=== PATIENT | male | born 1965 | race Caucasian/White ===

== ENCOUNTER 2020-07-17 17:08 | Inpatient (IN) | payer OTHER ==
[2020-07-17] MEDS ORDERED: Lorazepam 2 MG/ML VIAL ONE ×2 (18:27→19:54)
[2020-07-17] MEDS ORDERED: Lorazepam 2 MG/ML VIAL SLOW IVP SCH (18:30)
[2020-07-17] MEDS ORDERED: Zolpidem Tartrate 5 MG TAB PO PRN (18:34)
[2020-07-17] MEDS ORDERED: Ondansetron PF 4 MG/2 ML Vial IVP PRN (18:34)
[2020-07-17] MEDS ORDERED: Enoxaparin Sodium 40 MG/0.4 ML SYRINGE SC SCH (18:45)
[2020-07-17] MEDS ORDERED: Lorazepam 2 MG/ML VIAL SLOW IVP PRN ×2 (18:47→19:52)
[2020-07-17] MEDS ORDERED: niCARdipine 25 MG in Sodium Chloride 0.9% 250 ML 250 ML IVPB SCH (19:00)
[2020-07-17] MEDS: hydrALAZINE 20 MG/ML VIAL SLOW IVP PRN (19:04)
[2020-07-17] MEDS ORDERED: Dextrose 50% Abboject 50 ML SYRINGE SLOW IVP PRN (19:16)
[2020-07-17] MEDS ORDERED: Dextrose 5% in Water 1,000 ML IV PRN (19:16)
[2020-07-17] MEDS: niCARdipine 20MG In NaCl 20 MG/200 ML BAG IVPB SCH ×2 (20:00→22:00)
[2020-07-17] MEDS: Lorazepam 2 MG/ML VIAL SLOW IVP SCH ×2 (20:10→23:03)
[2020-07-17] MEDS: Lactated Ringer's 1,000 ML IV SCH (20:22)
[2020-07-17 20:28] LABS: Bilirubin Neg (Negative); Blood, Urine Negative (Negative); Clarity Clear (Clear); Glucose, Urine (Dipstick) >=1000 mg/dL (Negative); Ketone, Urine 50 mg/dL (Negative); Leukocyte Negative (Negative); Nitrite Negative (Negative); Protein, Urine (Dipstick) 30 mg/dl (Neg-Trace); Urobilinogen Normal mg/dL (Less than 2); pH, Urine 6.5 (5.0-9.0)
[2020-07-17 20:36] LABS: Amphetamine Not Detected (NotDetected); Barbiturates Screen Not Detected (NotDetected); Benzodiazepine Screen Not Detected (NotDetected); Cocaine Metabolite Screen Not Detected (NotDetected); Methadone Not Detected (NotDetected); Methamphetamine Not Detected (NotDetected); Opiate Screen Detected (NotDetected); Oxycodone Screen Not Detected (NotDetected); Phencyclidine (PCP) Not Detected (NotDetected); THC/Cannabinoid Screen Detected (NotDetected); Tricyclic Screen Not Detected (NotDetected)
[2020-07-17 20:38] LABS: #Basophils 0.1 10x3/uL (0.0-0.2); #Monocytes 0.5 10x3/uL (0.0-1.1); #Neutrophils 11.7 10x3/uL (1.5-8.4); %Basophils 0.4 % (0.0-2.0); %Eosinophils 0.1 % (0.0-6.0); %Monocytes 3.4 % (0.0-10.0); %Neutrophils 86.4 % (40.0-75.0); Hemoglobin 15.1 g/dL (13.5-17.5); Mean Corpuscular HGB CONC 34.2 g/dL (32.0-36.0); Mean Corpuscular Hemoglobin 28.9 pg (27.0-33.0); Mean Corpuscular Volume 84.5 fl (81.2-95.1); Mean Platelet Volume 11.2 fl (7.4-10.4); Platelet Count 275 10x3/uL (150-450); RBC Distribution Width 13.3 % (11.5-14.5); Red Blood Cell (RBC) Count 5.23 10x6/uL (4.32-5.72); White Blood Cell (WBC) Count 13.6 10x3/uL (3.5-10.5)
[2020-07-17 20:45] LABS: Bacteria/HPF None Seen HPF (None Seen); RBC/HPF None Seen HPF (0-3); Squamous Epithelial 0-3 HPF (0-3); WBC/HPF None Seen HPF (0-3)
[2020-07-17 20:54] LABS: ALT (SGPT) 13 U/L (8-55); AST (SGOT) 13 U/L (5-34); Albumin 4.6 g/dL (3.5-5.0); Alkaline Phosphatase 85 U/L (40-110); Anion Gap 20 mmol/L (10-20); BUN (Urea Nitrogen) 13 mg/dL (8.4-25.7); Bilirubin, Total 0.5 mg/dL (0.2-1.2); Calc. Creatinine Clearance 97 mL/min (70-130); Calcium 9.4 mg/dL (7.8-10.44); Carbon Dioxide 21 mmol/L (22-29); Chloride 102 mmol/L (98-107); Globulin 3.2 g/dL (2.4-3.5); Glucose 239 mg/dL (70-105); Lipase 10 U/L (8-78); Potassium 3.7 mmol/L (3.5-5.1); Protein, Total 7.8 g/dL (6.0-8.3); Sodium 139 mmol/L (136-145)
[2020-07-17 20:57] LABS: Troponin I 0.058 ng/mL (< 0.028)
[2020-07-17 21:07] LABS: Glucose 240 mg/dL (70-105)
[2020-07-17] MEDS: HumaLOG 300 UNITS/3 ML VIAL SC PRN (21:07)
[2020-07-17] MEDS: Famotidine/PF 20 mg/2ml Vial SLOW IVP SCH (22:09)
[2020-07-17] MEDS ORDERED: Sterile Water 10 ML VIAL FS SCH (22:15)
[2020-07-17] MEDS ORDERED: Ziprasidone 20 MG VIAL IM SCH (22:15)
[2020-07-17] MEDS ORDERED: niCARdipine 20MG In NaCl 20 MG/200 ML BAG ONE (23:06)
[2020-07-17] MEDS ORDERED: Labetalol HCl 200 MG in Sodium Chloride 0.9% 250 ML 160 ML IVPB SCH (23:59)
[2020-07-18] MEDS: cloNIDine 0.1mg/24 Hour PATCH TD SCH ×2 (00:26→23:59)
[2020-07-18] MEDS: SODIUM CHLORIDE 0.9% IVPB SCH ×2 (00:27→10:00)
[2020-07-18] MEDS: LABETALOL HCL IVPB SCH ×2 (00:27→10:00)
[2020-07-18 00:29] LABS: Troponin I 0.071 ng/mL (< 0.028)
[2020-07-18] MEDS: Lorazepam 2 MG/ML VIAL SLOW IVP PRN ×3 (01:04→16:26)
[2020-07-18] MEDS: Lactated Ringer's 1,000 ML IV SCH ×3 (03:43→20:59)
[2020-07-18] MEDS: Lorazepam 2 MG/ML VIAL SLOW IVP SCH ×8 (03:43→23:57)
[2020-07-18 04:39] LABS: #Neutrophils 11.3 10x3/uL (1.5-8.4); %Basophils 0.3 % (0.0-2.0); %Lymphocytes 13.1 % (18.0-47.0); %Monocytes 7.1 % (0.0-10.0); %Neutrophils 79.2 % (40.0-75.0); Hemoglobin 15.1 g/dL (13.5-17.5); Mean Corpuscular HGB CONC 33.9 g/dL (32.0-36.0); Mean Corpuscular Volume 85.8 fl (81.2-95.1); Mean Platelet Volume 11.5 fl (7.4-10.4); Platelet Count 246 10x3/uL (150-450); RBC Distribution Width 13.2 % (11.5-14.5); White Blood Cell (WBC) Count 14.3 10x3/uL (3.5-10.5)
[2020-07-18 04:52] LABS: ALT (SGPT) 14 U/L (8-55); AST (SGOT) 16 U/L (5-34); Albumin 4.3 g/dL (3.5-5.0); Alkaline Phosphatase 81 U/L (40-110); Anion Gap 18 mmol/L (10-20); BUN (Urea Nitrogen) 12 mg/dL (8.4-25.7); Bilirubin, Total 0.5 mg/dL (0.2-1.2); Calc. Creatinine Clearance 124 mL/min (70-130); Calcium 9.4 mg/dL (7.8-10.44); Carbon Dioxide 23 mmol/L (22-29); Chloride 105 mmol/L (98-107); Globulin 3.1 g/dL (2.4-3.5); Glucose 161 mg/dL (70-105); Lipase 14 U/L (8-78); Potassium 3.4 mmol/L (3.5-5.1); Protein, Total 7.4 g/dL (6.0-8.3); Sodium 143 mmol/L (136-145)
[2020-07-18 05:05] LABS: Troponin I 0.207 ng/mL (< 0.028)
[2020-07-18] MEDS: HumaLOG 300 UNITS/3 ML VIAL SC PRN ×3 (08:37→22:47)
[2020-07-18] MEDS: Famotidine/PF 20 mg/2ml Vial SLOW IVP SCH ×2 (08:42→20:37)
[2020-07-18] MEDS: Lisinopril 20 MG TAB PO SCH (08:54)
[2020-07-18] MEDS ORDERED: hydrALAZINE 25 MG TAB PO SCH ×2 (11:15→15:00)
[2020-07-18 11:22] LABS: Hemoglobin A1c 11.7 % (4.0-6.0)
[2020-07-18] MEDS ORDERED: Potassium Chloride 10 MEQ in Premix Bag 1 BAG IVPB SCH (11:30)
[2020-07-18] MEDS: hydrALAZINE 20 MG/ML VIAL SLOW IVP PRN ×2 (13:00→21:29)
[2020-07-18] MEDS: Carvedilol 12.5 MG TAB PO SCH (16:26)
[2020-07-19] MEDS: Labetalol HCl 100 MG/20 ML VIAL SLOW IVP PRN ×2 (00:34→11:10)
[2020-07-19] MEDS: hydrALAZINE 20 MG/ML VIAL SLOW IVP PRN (01:38)
[2020-07-19] MEDS: Lorazepam 2 MG/ML VIAL SLOW IVP SCH ×7 (02:44→22:06)
[2020-07-19 04:34] LABS: ALT (SGPT) 15 U/L (8-55); AST (SGOT) 18 U/L (5-34); Alkaline Phosphatase 88 U/L (40-110); Anion Gap 15 mmol/L (10-20); BUN (Urea Nitrogen) 18 mg/dL (8.4-25.7); Bilirubin, Total 0.8 mg/dL (0.2-1.2); Calc. Creatinine Clearance 126 mL/min (70-130); Calcium 9.5 mg/dL (7.8-10.44); Carbon Dioxide 22 mmol/L (22-29); Chloride 109 mmol/L (98-107); Globulin 2.7 g/dL (2.4-3.5); Glucose 140 mg/dL (70-105); Potassium 3.6 mmol/L (3.5-5.1); Protein, Total 6.7 g/dL (6.0-8.3); Sodium 142 mmol/L (136-145)
[2020-07-19 04:40] LABS: #Basophils 0.1 10x3/uL (0.0-0.2); #Monocytes 1.1 10x3/uL (0.0-1.1); #Neutrophils 12.8 10x3/uL (1.5-8.4); %Basophils 0.4 % (0.0-2.0); %Eosinophils 0.1 % (0.0-6.0); %Lymphocytes 11.4 % (18.0-47.0); %Neutrophils 80.7 % (40.0-75.0); Hemoglobin 15.1 g/dL (13.5-17.5); Mean Corpuscular HGB CONC 33.3 g/dL (32.0-36.0); Mean Corpuscular Volume 87.1 fl (81.2-95.1); Mean Platelet Volume 12.1 fl (7.4-10.4); Platelet Count 234 10x3/uL (150-450); RBC Distribution Width 13.6 % (11.5-14.5); White Blood Cell (WBC) Count 15.9 10x3/uL (3.5-10.5)
[2020-07-19 04:44] LABS: Troponin I 0.305 ng/mL (< 0.028)
[2020-07-19] MEDS: Lactated Ringer's 1,000 ML IV SCH (04:45)
[2020-07-19] MEDS ORDERED: Nitroglycerin 2% Ointment 1 INCH/1 GM Packet TOP SCH (05:15)
[2020-07-19] MEDS: HumaLOG 300 UNITS/3 ML VIAL SC PRN (06:45)
[2020-07-19] MEDS: Carvedilol 12.5 MG TAB PO SCH (08:08)
[2020-07-19 08:35] LABS: Glucose 156 mg/dL (70-105)
[2020-07-19] MEDS: hydrALAZINE 25 MG TAB PO SCH ×3 (08:35→22:08)
[2020-07-19] MEDS: Aspirin 81 mg Enteric Coated Tablet PO SCH (08:36)
[2020-07-19] MEDS: Vancomycin HCl 1 GM in Sodium Chloride 0.9% 250 ML 250 ML IVPB SCH ×2 (08:37→22:08)
[2020-07-19] MEDS: Famotidine/PF 20 mg/2ml Vial SLOW IVP SCH ×2 (08:37→22:00)
[2020-07-19] MEDS: Lisinopril 20 MG TAB PO SCH (08:38)
[2020-07-19] MEDS ORDERED: Carvedilol 25 MG TAB PO SCH (08:45)
[2020-07-19] MEDS ORDERED: Vancomycin 1 GM in Premix Bag 1 BAG IVPB SCH (09:00)
[2020-07-19] MEDS ORDERED: Furosemide 20 MG/2 ML VIAL SLOW IVP SCH (11:00)
[2020-07-19 11:50] LABS: Glucose 119 mg/dL (70-105)
[2020-07-19] MEDS: Lorazepam 2 MG/ML VIAL SLOW IVP PRN (12:34)
[2020-07-19] MEDS: Carvedilol 25 MG TAB PO SCH (17:00)
[2020-07-19] MEDS ORDERED: Atropine Sulfate 1 mg/10 ml Syringe ONE (18:05)
[2020-07-19] MEDS ORDERED: Norepinephrine 8 MG/0.9% NS 250 ML ONE (18:22)
[2020-07-19] MEDS ORDERED: Atropine Sulfate 1 mg/10 ml Syringe IVP SCH (18:45)
[2020-07-19] MEDS ORDERED: Norepinephrine 8 MG/0.9% NS 250 ML IVPB SCH (18:45)
[2020-07-19] MEDS ORDERED: Propofol 1,000 MG/100 ML VIAL IV ONE (20:03)
[2020-07-19] MEDS ORDERED: Propofol BOLUS 1,000 MG/100 ML VIAL IV PRN (21:15)
[2020-07-19] MEDS ORDERED: Lorazepam 2 MG/ML VIAL SLOW IVP PRN (21:15)
[2020-07-19] MEDS ORDERED: DISCONTINUE PREVIOUS NARCOTIC PAIN MEDICATIONS AND BENZODIAZEPINES FS SCH (21:15)
[2020-07-19] MEDS ORDERED: Fentanyl BOLUS 250 ML IVPB PRN (21:15)
[2020-07-19] MEDS ORDERED: Morphine 2 MG/ML VIAL SLOW IVP PRN (21:15)
[2020-07-19] MEDS: Atorvastatin Calcium 40 MG TAB PO SCH (22:00)
[2020-07-20] MEDS: Lorazepam 2 MG/ML VIAL SLOW IVP SCH ×3 (00:52→07:59)
[2020-07-20] MEDS: Propofol 1,000 MG/100 ML VIAL IV PRN ×2 (03:27→07:37)
[2020-07-20] MEDS: Labetalol HCl 100 MG/20 ML VIAL SLOW IVP PRN (05:08)
[2020-07-20] MEDS: Aspirin 81 mg Enteric Coated Tablet PO SCH (07:58)
[2020-07-20] MEDS: Carvedilol 25 MG TAB PO SCH ×2 (07:58→16:50)
[2020-07-20] MEDS: Lisinopril 20 MG TAB PO SCH (07:58)
[2020-07-20] MEDS: Famotidine/PF 20 mg/2ml Vial SLOW IVP SCH ×2 (07:58→21:14)
[2020-07-20] MEDS: hydrALAZINE 25 MG TAB PO SCH ×3 (07:59→21:05)
[2020-07-20 08:02] LABS: #Monocytes 0.4 10x3/uL (0.0-1.1); #Neutrophils 4.6 10x3/uL (1.5-8.4); %Basophils 0.3 % (0.0-2.0); %Monocytes 6.1 % (0.0-10.0); %Neutrophils 80.3 % (40.0-75.0); Hemoglobin 13.7 g/dL (13.5-17.5); Mean Corpuscular HGB CONC 32.9 g/dL (32.0-36.0); Mean Corpuscular Volume 87.9 fl (81.2-95.1); Mean Platelet Volume 12.6 fl (7.4-10.4); Platelet Count 150 10x3/uL (150-450); Red Blood Cell (RBC) Count 4.73 10x6/uL (4.32-5.72); White Blood Cell (WBC) Count 5.8 10x3/uL (3.5-10.5)
[2020-07-20 08:38] LABS: ALT (SGPT) 17 U/L (8-55); AST (SGOT) 14 U/L (5-34); Albumin 3.2 g/dL (3.5-5.0); Alkaline Phosphatase 71 U/L (40-110); Anion Gap 21 mmol/L (10-20); BUN (Urea Nitrogen) 28 mg/dL (8.4-25.7); Bilirubin, Total 0.4 mg/dL (0.2-1.2); Calc. Creatinine Clearance 121 mL/min (70-130); Calcium 9.1 mg/dL (7.8-10.44); Carbon Dioxide 13 mmol/L (22-29); Chloride 113 mmol/L (98-107); Globulin 2.6 g/dL (2.4-3.5); Glucose 158 mg/dL (70-105); Magnesium 2.1 mg/dL (1.6-2.6); Potassium 3.4 mmol/L (3.5-5.1); Protein, Total 5.8 g/dL (6.0-8.3); Sodium 144 mmol/L (136-145)
[2020-07-20] MEDS: Vancomycin HCl 1 GM in Sodium Chloride 0.9% 250 ML 250 ML IVPB SCH ×2 (09:24→21:14)
[2020-07-20 09:31] LABS: Free T4 (Free Thyroxine) 0.89 ng/dL (0.70-1.48); Thyroid Stimulating Hormone 0.3001 uIU/mL (0.35-4.94)
[2020-07-20] MEDS: Dexmedetomidine In 0.9 % NaCl 100 ML IVPB SCH (11:47)
[2020-07-20 12:33] LABS: Glucose 131 mg/dL (70-105)
[2020-07-20 12:39] LABS: Actual Bicarbonate (HCO3a) 20.6 mEq/L (22-28); Base Excess (BEa) -1.3 mEq/L (-2.0 to +3.0); CO2 Tension 27.5 mmHg (35.0-45.0); Calcium, Ionized (arterial) 1.17 mmol/L (1.12-1.30); Carboxyhemoglobin (COHb) 0.4 gm% (0.0-3.0); Hemoglobin (Hb) 13.9 g/dL (14.0-18.0); O2 Tension (PaO2), arterial 90.1 mmHg (80.0-100.0); Potassium - ABG Lab 3.4 mmol/L (3.70-5.30); Puncture Site RRA; pH, Arterial 7.49 (7.35-7.45)
[2020-07-20 12:43] LABS: ALV-art Gradient 160.725 mmHg (0-20)
[2020-07-20] MEDS ORDERED: Sodium Bicarb 50 MEQ/50 ML Abboject 8.4% SYRINGE IVP SCH (14:15)
[2020-07-20] MEDS ORDERED: Sodium Bicarb 50 MEQ/50 ML VIAL IVP SCH (14:30)
[2020-07-20] MEDS ORDERED: Potassium Chloride 20 MEQ in Premix Bag 1 BAG IVPB SCH (14:45)
[2020-07-20] MEDS ORDERED: Fentanyl CADD 100 ML ONE (15:18)
[2020-07-20] MEDS: Fentanyl CADD 100 ML IVPB SCH (15:22)
[2020-07-20 17:35] LABS: Glucose 108 mg/dL (70-105)
[2020-07-20 20:43] LABS: Vancomycin, Trough 14.9 ug/mL
[2020-07-20] MEDS: Atorvastatin Calcium 40 MG TAB PO SCH (21:13)
[2020-07-20 21:49] LABS: Glucose 125 mg/dL (70-105)
[2020-07-21 04:22] LABS: #Monocytes 0.6 10x3/uL (0.0-1.1); #Neutrophils 7.9 10x3/uL (1.5-8.4); %Basophils 0.2 % (0.0-2.0); %Eosinophils 0.2 % (0.0-6.0); %Monocytes 5.5 % (0.0-10.0); %Neutrophils 76.4 % (40.0-75.0); Hemoglobin 12.4 g/dL (13.5-17.5); Mean Corpuscular HGB CONC 32.9 g/dL (32.0-36.0); Mean Corpuscular Volume 88.1 fl (81.2-95.1); Mean Platelet Volume 12.8 fl (7.4-10.4); Platelet Count 173 10x3/uL (150-450); RBC Distribution Width 14.7 % (11.5-14.5); Red Blood Cell (RBC) Count 4.28 10x6/uL (4.32-5.72); White Blood Cell (WBC) Count 10.3 10x3/uL (3.5-10.5)
[2020-07-21 04:38] LABS: Anion Gap 15 mmol/L (10-20); BUN (Urea Nitrogen) 34 mg/dL (8.4-25.7); Calc. Creatinine Clearance 83 mL/min (70-130); Calcium 8.6 mg/dL (7.8-10.44); Carbon Dioxide 20 mmol/L (22-29); Chloride 113 mmol/L (98-107); Glucose 153 mg/dL (70-105); Potassium 3.2 mmol/L (3.5-5.1); Sodium 145 mmol/L (136-145)
[2020-07-21] MEDS: Dexmedetomidine In 0.9 % NaCl 100 ML IVPB SCH ×2 (07:38→17:21)
[2020-07-21] MEDS: Famotidine/PF 20 mg/2ml Vial SLOW IVP SCH ×2 (07:59→21:33)
[2020-07-21] MEDS: Aspirin 81 mg Enteric Coated Tablet PO SCH (07:59)
[2020-07-21] MEDS: hydrALAZINE 25 MG TAB PO SCH ×3 (08:01→21:33)
[2020-07-21 08:22] LABS: Glucose 144 mg/dL (70-105)
[2020-07-21] MEDS: Vancomycin HCl 1 GM in Sodium Chloride 0.9% 250 ML 250 ML IVPB SCH ×2 (09:52→21:33)
[2020-07-21] MEDS: Lisinopril 20 MG TAB PO SCH (09:52)
[2020-07-21] MEDS: Carvedilol 25 MG TAB PO SCH ×2 (09:52→16:20)
[2020-07-21] MEDS: Fentanyl CADD 100 ML IVPB SCH (10:50)
[2020-07-21 11:58] LABS: Glucose 160 mg/dL (70-105)
[2020-07-21] MEDS: HumaLOG 300 UNITS/3 ML VIAL SC PRN (16:52)
[2020-07-21 17:57] LABS: Glucose 170 mg/dL (70-105)
[2020-07-21] MEDS: Atorvastatin Calcium 40 MG TAB PO SCH (21:33)
[2020-07-21 21:43] LABS: Glucose 147 mg/dL (70-105)
[2020-07-22] MEDS ORDERED: Midazolam HCl 2 mg/2 ml Vial SLOW IVP PRN (03:41)
[2020-07-22] MEDS ORDERED: Midazolam HCl 2 mg/2 ml Vial SLOW IVP SCH (03:45)
[2020-07-22] MEDS: Dexmedetomidine In 0.9 % NaCl 100 ML IVPB SCH ×2 (04:00→18:09)
[2020-07-22] MEDS: Fentanyl CADD 100 ML IVPB SCH (05:25)
[2020-07-22] MEDS: Carvedilol 25 MG TAB PO SCH ×2 (08:05→16:17)
[2020-07-22] MEDS: hydrALAZINE 25 MG TAB PO SCH ×3 (08:05→21:09)
[2020-07-22] MEDS: Lisinopril 20 MG TAB PO SCH (08:05)
[2020-07-22 08:06] LABS: Vancomycin, Trough 17.3 ug/mL
[2020-07-22] MEDS: Famotidine/PF 20 mg/2ml Vial SLOW IVP SCH ×2 (08:07→21:09)
[2020-07-22 08:11] LABS: Glucose 157 mg/dL (70-105)
[2020-07-22] MEDS: Vancomycin HCl 1 GM in Sodium Chloride 0.9% 250 ML 250 ML IVPB SCH ×2 (09:15→21:36)
[2020-07-22] MEDS: Labetalol HCl 100 MG/20 ML VIAL SLOW IVP PRN (13:07)
[2020-07-22] MEDS: hydrALAZINE 20 MG/ML VIAL SLOW IVP PRN (14:47)
[2020-07-22] MEDS: Atorvastatin Calcium 40 MG TAB PO SCH (21:08)
[2020-07-22] MEDS: Acetaminophen 325 MG TAB PO PRN (21:10)
[2020-07-23] MEDS: Labetalol HCl 100 MG/20 ML VIAL SLOW IVP PRN ×3 (00:15→22:01)
[2020-07-23] MEDS: hydrALAZINE 20 MG/ML VIAL SLOW IVP PRN ×2 (02:30→23:40)
[2020-07-23] MEDS ORDERED: NIFEdipine XL 60 MG TAB PO SCH (03:30)
[2020-07-23] MEDS ORDERED: NIFEdipine 10 MG CAP PO SCH ×2 (04:15→21:00)
[2020-07-23] MEDS: Aspirin 81 mg Enteric Coated Tablet PO SCH (08:45)
[2020-07-23] MEDS: Lisinopril 20 MG TAB PO SCH (08:45)
[2020-07-23] MEDS: hydrALAZINE 25 MG TAB PO SCH ×5 (08:51→20:48)
[2020-07-23] MEDS: Famotidine/PF 20 mg/2ml Vial SLOW IVP SCH ×2 (08:53→20:48)
[2020-07-23] MEDS: Vancomycin HCl 1 GM in Sodium Chloride 0.9% 250 ML 250 ML IVPB SCH (08:54)
[2020-07-23] MEDS: Carvedilol 25 MG TAB PO SCH ×2 (08:54→16:46)
[2020-07-23] MEDS ORDERED: hydrALAZINE 25 MG TAB PO SCH (09:00)
[2020-07-23] MEDS: HumaLOG 300 UNITS/3 ML VIAL SC PRN ×2 (09:01→12:00)
[2020-07-23 10:25] LABS: Actual Bicarbonate (HCO3a) 23.2 mEq/L (22-28); Base Excess (BEa) -0.9 mEq/L (-2.0 to +3.0); CO2 Tension 36.6 mmHg (35.0-45.0); Carboxyhemoglobin (COHb) 0.4 gm% (0.0-3.0); Hemoglobin (Hb) 13.3 g/dL (14.0-18.0); O2 Tension (PaO2), arterial 84.3 mmHg (80.0-100.0); Potassium - ABG Lab 3.5 mmol/L (3.70-5.30); Puncture Site LRA; pH, Arterial 7.42 (7.35-7.45)
[2020-07-23 10:56] LABS: ALV-art Gradient 240.525 mmHg (0-20); Actual Bicarbonate (HCO3a) 20.4 mEq/L (22-28); Base Excess (BEa) -5.7 mEq/L (-2.0 to +3.0); CO2 Tension 42.7 mmHg (35.0-45.0); Calcium, Ionized (arterial) 1.19 mmol/L (1.12-1.30); Carboxyhemoglobin (COHb) 0.3 gm% (0.0-3.0); Hemoglobin (Hb) 12.3 g/dL (14.0-18.0); O2 Tension (PaO2), arterial 419.1 mmHg (80.0-100.0); Potassium - ABG Lab 3.5 mmol/L (3.70-5.30); Puncture Site LRA
[2020-07-23] MEDS ORDERED: Dexmedetomidine In 0.9 % NaCl 100 ML ONE (14:10)
[2020-07-23] MEDS: Atorvastatin Calcium 40 MG TAB PO SCH (20:48)
[2020-07-23] MEDS: Amlodipine 10 MG TAB PO SCH (20:49)
[2020-07-23] MEDS: Dexmedetomidine In 0.9 % NaCl 100 ML IVPB SCH (23:04)
[2020-07-24] MEDS: Labetalol HCl 100 MG/20 ML VIAL SLOW IVP PRN ×4 (02:44→20:54)
[2020-07-24 04:31] LABS: #Basophils 0.1 10x3/uL (0.0-0.2); #Monocytes 0.7 10x3/uL (0.0-1.1); #Neutrophils 7.3 10x3/uL (1.5-8.4); %Basophils 0.6 % (0.0-2.0); %Eosinophils 0.2 % (0.0-6.0); %Lymphocytes 12.9 % (18.0-47.0); %Monocytes 7.4 % (0.0-10.0); %Neutrophils 74.8 % (40.0-75.0); Hemoglobin 14.7 g/dL (13.5-17.5); Mean Corpuscular HGB CONC 33.5 g/dL (32.0-36.0); Mean Corpuscular Hemoglobin 28.6 pg (27.0-33.0); Mean Corpuscular Volume 85.4 fl (81.2-95.1); Mean Platelet Volume 11.8 fl (7.4-10.4); Platelet Count 217 10x3/uL (150-450); RBC Distribution Width 14.2 % (11.5-14.5); Red Blood Cell (RBC) Count 5.14 10x6/uL (4.32-5.72); White Blood Cell (WBC) Count 9.7 10x3/uL (3.5-10.5)
[2020-07-24 04:50] LABS: Anion Gap 22 mmol/L (10-20); BUN (Urea Nitrogen) 23 mg/dL (8.4-25.7); Calc. Creatinine Clearance 127 mL/min (70-130); Calcium 9.3 mg/dL (7.8-10.44); Carbon Dioxide 13 mmol/L (22-29); Chloride 112 mmol/L (98-107); Glucose 183 mg/dL (70-105); Potassium 3.8 mmol/L (3.5-5.1); Sodium 143 mmol/L (136-145)
[2020-07-24] MEDS: hydrALAZINE 20 MG/ML VIAL SLOW IVP PRN (06:03)
[2020-07-24] MEDS: HumaLOG 300 UNITS/3 ML VIAL SC PRN ×4 (06:32→21:53)
[2020-07-24 08:12] LABS: Glucose 171 mg/dL (70-105)
[2020-07-24] MEDS ORDERED: NIFEdipine XL 60 MG TAB PO SCH (09:00)
[2020-07-24] MEDS: Carvedilol 25 MG TAB PO SCH ×2 (09:03→16:03)
[2020-07-24] MEDS: hydrALAZINE 25 MG TAB PO SCH ×3 (09:04→21:41)
[2020-07-24] MEDS: Famotidine/PF 20 mg/2ml Vial SLOW IVP SCH ×2 (09:04→21:42)
[2020-07-24] MEDS: Aspirin 81 mg Enteric Coated Tablet PO SCH (09:04)
[2020-07-24] MEDS: Lisinopril 20 MG TAB PO SCH (09:05)
[2020-07-24] MEDS: Dexmedetomidine In 0.9 % NaCl 100 ML IVPB SCH (11:55)
[2020-07-24] MEDS: Isosorbide Dinitrate 10 MG TAB PO SCH (21:42)
[2020-07-24] MEDS: Amlodipine 10 MG TAB PO SCH (21:42)
[2020-07-24] MEDS: Atorvastatin Calcium 40 MG TAB PO SCH (21:42)
[2020-07-24] MEDS ORDERED: Sodium Chloride 0.9% 1,000 ML IV SCH (23:15)
[2020-07-25] MEDS: Sodium Chloride 0.9% 1,000 ML IV SCH ×2 (04:00→08:54)
[2020-07-25 05:26] LABS: Calcium, Ionized (arterial) 1.22 mmol/L (1.12-1.30)
[2020-07-25] MEDS ORDERED: EPINEPHrine 4 MG in Dextrose 5% in Water 250 ML IV SCH (06:45)
[2020-07-25] MEDS ORDERED: Norepinephrine 8 MG/0.9% NS 250 ML ONE (07:04)
[2020-07-25] MEDS ORDERED: Albumin 25% 25 GM/100 ML BOT IVPB ONE (09:19)
[2020-07-25] MEDS ORDERED: Hydrocortisone Sod Succ/PF 100 MG in Sodium Chloride 0.9% 50 ML IVPB SCH (09:20)
[2020-07-25 09:21] LABS: ALV-art Gradient 564.275 mmHg (0-20); Actual Bicarbonate (HCO3a) 18.7 mEq/L (22-28); Base Excess (BEa) -10.6 mEq/L (-2.0 to +3.0); CO2 Tension 55.3 mmHg (35.0-45.0); Carboxyhemoglobin (COHb) 0.3 gm% (0.0-3.0); Hemoglobin (Hb) 14.3 g/dL (14.0-18.0); O2 Tension (PaO2), arterial 79.6 mmHg (80.0-100.0); Potassium - ABG Lab 3.5 mmol/L (3.70-5.30); Puncture Site LFA; pH, Arterial 7.15 (7.35-7.45)
[2020-07-25] MEDS ORDERED: Sodium Chloride 0.9% 1,000 ML IV SCH (09:30)
[2020-07-25] MEDS: Albumin 25% 100 ML IVPB SCH ×2 (09:42→11:15)
[2020-07-25] MEDS: Hydrocortisone Sod Succ/PF 100 mg/2 ml Vial IVP SCH ×2 (09:42→17:48)
[2020-07-25] MEDS: Famotidine/PF 20 mg/2ml Vial SLOW IVP SCH ×2 (09:42→21:06)
[2020-07-25] MEDS: Meropenem 500 MG in Sodium Chloride 0.9% 100 ML IVPB SCH ×3 (09:42→21:06)
[2020-07-25 09:48] LABS: Mean Corpuscular HGB CONC 32.4 g/dL (32.0-36.0); Mean Corpuscular Volume 89.5 fl (81.2-95.1); Mean Platelet Volume 11.9 fl (7.4-10.4); Platelet Count 320 10x3/uL (150-450); RBC Distribution Width 14.8 % (11.5-14.5); Red Blood Cell (RBC) Count 4.48 10x6/uL (4.32-5.72); White Blood Cell (WBC) Count 25.3 10x3/uL (3.5-10.5)
[2020-07-25 09:51] LABS: Actual Bicarbonate (HCO3a) 18.7 mEq/L (22-28); Base Excess (BEa) -10.6 mEq/L (-2.0 to +3.0); CO2 Tension 55.3 mmHg (35.0-45.0); O2 Tension (PaO2), arterial 79.6 mmHg (80.0-100.0); pH, Arterial 7.15 (7.35-7.45)
[2020-07-25 09:52] LABS: Carboxyhemoglobin (COHb) 0.3 gm% (0.0-3.0); Hemoglobin (Hb) 14.3 g/dL (14.0-18.0); Potassium - ABG Lab 3.5 mmol/L (3.70-5.30)
[2020-07-25 09:53] LABS: Calcium, Ionized (arterial) 1.22 mmol/L (1.12-1.30); Puncture Site LFA
[2020-07-25 09:55] LABS: ALV-art Gradient 564.275 mmHg (0-20)
[2020-07-25 09:58] LABS: Anion Gap 18 mmol/L (10-20); Globulin 2.6 g/dL (2.4-3.5)
[2020-07-25] MEDS ORDERED: Meropenem 2 GM, Admixture Fee 1 EACH in Sodium Chloride 0.9% 100 ML IVPB SCH (10:00)
[2020-07-25] MEDS: Carvedilol 25 MG TAB PO SCH ×2 (10:04→16:20)
[2020-07-25] MEDS: Aspirin 81 mg Enteric Coated Tablet PO SCH ×2 (10:04→15:59)
[2020-07-25 10:14] LABS: ALT (SGPT) 183 U/L (8-55); AST (SGOT) 174 U/L (5-34); Albumin 2.7 g/dL (3.5-5.0); Alkaline Phosphatase 98 U/L (40-110); BUN (Urea Nitrogen) 48 mg/dL (8.4-25.7); Bilirubin, Total 0.3 mg/dL (0.2-1.2); Calc. Creatinine Clearance 50 mL/min (70-130); Calcium 7.9 mg/dL (7.8-10.44); Carbon Dioxide 20 mmol/L (22-29); Chloride 115 mmol/L (98-107); Glucose 356 mg/dL (70-105); Potassium 3.9 mmol/L (3.5-5.1); Protein, Total 5.3 g/dL (6.0-8.3); Sodium 149 mmol/L (136-145)
[2020-07-25 10:16] LABS: MDiff Complete? YES
[2020-07-25 10:20] LABS: Band 3 % (5-11); Lymphocytes 11 % (21-51); Monocytes 7 % (0-10); Neutrophil 79 % (42-75)
[2020-07-25 10:21] LABS: Platelet Morphology Comment Appears Adequate
[2020-07-25] MEDS: hydrALAZINE 25 MG TAB PO SCH (10:35)
[2020-07-25] MEDS: Lisinopril 20 MG TAB PO SCH (10:36)
[2020-07-25] MEDS: Isosorbide Dinitrate 10 MG TAB PO SCH (10:36)
[2020-07-25] MEDS: Lorazepam 2 MG/ML VIAL SLOW IVP SCH ×2 (10:41→10:42)
[2020-07-25] MEDS: Sodium Chloride 0.45% 1,000 ML IV SCH ×3 (10:46→23:12)
[2020-07-25] MEDS ORDERED: Sodium Bicarbonate 150 MEQ in Dextrose 5% in Water 1,000 ML IV SCH (11:00)
[2020-07-25 11:38] LABS: Actual Bicarbonate (HCO3a) 17.8 mEq/L (22-28); Base Excess (BEa) -9.2 mEq/L (-2.0 to +3.0); CO2 Tension 42.6 mmHg (35.0-45.0); Calcium, Ionized (arterial) 1.14 mmol/L (1.12-1.30); Hemoglobin (Hb) 12.8 g/dL (14.0-18.0); O2 Tension (PaO2), arterial 278.7 mmHg (80.0-100.0); Puncture Site LRA; pH, Arterial 7.24 (7.35-7.45)
[2020-07-25] MEDS: HumaLOG 300 UNITS/3 ML VIAL SC PRN ×2 (12:02→18:02)
[2020-07-25 16:32] LABS: ALT (SGPT) 133 U/L (8-55); AST (SGOT) 96 U/L (5-34); Albumin 3.4 g/dL (3.5-5.0); Alkaline Phosphatase 86 U/L (40-110); Anion Gap 14 mmol/L (10-20); BUN (Urea Nitrogen) 48 mg/dL (8.4-25.7); Bilirubin, Total 0.4 mg/dL (0.2-1.2); Calc. Creatinine Clearance 54 mL/min (70-130); Calcium 7.9 mg/dL (7.8-10.44); Carbon Dioxide 23 mmol/L (22-29); Chloride 112 mmol/L (98-107); Globulin 2.3 g/dL (2.4-3.5); Glucose 315 mg/dL (70-105); Potassium 3.7 mmol/L (3.5-5.1); Protein, Total 5.7 g/dL (6.0-8.3); Sodium 145 mmol/L (136-145)
[2020-07-25] MEDS: Atorvastatin Calcium 40 MG TAB PO SCH (21:06)
[2020-07-25] MEDS ORDERED: Norepinephrine 8 MG/0.9% NS 250 ML IVPB SCH (21:15)
[2020-07-26] MEDS: Hydrocortisone Sod Succ/PF 100 mg/2 ml Vial IVP SCH ×2 (01:59→09:39)
[2020-07-26] MEDS: Meropenem 500 MG in Sodium Chloride 0.9% 100 ML IVPB SCH ×4 (03:30→21:38)
[2020-07-26] MEDS: Labetalol HCl 100 MG/20 ML VIAL SLOW IVP PRN (03:31)
[2020-07-26 04:00] LABS: #Basophils 0.1 10x3/uL (0.0-0.2); #Monocytes 1.3 10x3/uL (0.0-1.1); #Neutrophils 14.6 10x3/uL (1.5-8.4); %Basophils 0.3 % (0.0-2.0); %Eosinophils 0.1 % (0.0-6.0); %Lymphocytes 7.4 % (18.0-47.0); %Monocytes 7.2 % (0.0-10.0); %Neutrophils 82.2 % (40.0-75.0); Hemoglobin 12.1 g/dL (13.5-17.5); Mean Corpuscular HGB CONC 32.9 g/dL (32.0-36.0); Mean Corpuscular Hemoglobin 28.3 pg (27.0-33.0); Mean Corpuscular Volume 86.2 fl (81.2-95.1); Mean Platelet Volume 11.3 fl (7.4-10.4); Platelet Count 211 10x3/uL (150-450); RBC Distribution Width 14.7 % (11.5-14.5); Red Blood Cell (RBC) Count 4.27 10x6/uL (4.32-5.72); White Blood Cell (WBC) Count 17.7 10x3/uL (3.5-10.5)
[2020-07-26 05:08] LABS: Actual Bicarbonate (HCO3a) 22.6 mEq/L (22-28); Base Excess (BEa) -0.2 mEq/L (-2.0 to +3.0); CO2 Tension 31.2 mmHg (35.0-45.0); Calcium, Ionized (arterial) 1.13 mmol/L (1.12-1.30); Hemoglobin (Hb) 12.6 g/dL (14.0-18.0); O2 Tension (PaO2), arterial 101.3 mmHg (80.0-100.0); Potassium - ABG Lab 3.3 mmol/L (3.70-5.30); Puncture Site RBA; pH, Arterial 7.48 (7.35-7.45)
[2020-07-26] MEDS: hydrALAZINE 20 MG/ML VIAL SLOW IVP PRN (05:30)
[2020-07-26] MEDS: Sodium Chloride 0.9% 1,000 ML IV SCH (07:11)
[2020-07-26] MEDS: Sodium Chloride 0.45% 1,000 ML IV SCH ×3 (07:11→18:48)
[2020-07-26] MEDS: Famotidine/PF 20 mg/2ml Vial SLOW IVP SCH (08:27)
[2020-07-26] MEDS: Aspirin 81 mg Enteric Coated Tablet PO SCH (08:27)
[2020-07-26] MEDS: Lisinopril 20 MG TAB PO SCH (08:27)
[2020-07-26] MEDS: Carvedilol 25 MG TAB PO SCH ×2 (08:27→15:53)
[2020-07-26] MEDS: HumaLOG 300 UNITS/3 ML VIAL SC PRN ×3 (09:13→15:57)
[2020-07-26] MEDS ORDERED: Pantoprazole 40 MG VIAL IVP SCH (10:45)
[2020-07-26 10:56] LABS: ALT (SGPT) 87 U/L (8-55); AST (SGOT) 36 U/L (5-34); Albumin 3.1 g/dL (3.5-5.0); Alkaline Phosphatase 87 U/L (40-110); Anion Gap 18 mmol/L (10-20); BUN (Urea Nitrogen) 38 mg/dL (8.4-25.7); Bilirubin, Total 0.4 mg/dL (0.2-1.2); Calc. Creatinine Clearance 76 mL/min (70-130); Calcium 8.4 mg/dL (7.8-10.44); Carbon Dioxide 25 mmol/L (22-29); Chloride 112 mmol/L (98-107); Globulin 2.4 g/dL (2.4-3.5); Glucose 167 mg/dL (70-105); Protein, Total 5.5 g/dL (6.0-8.3); Sodium 152 mmol/L (136-145)
[2020-07-26 11:07] LABS: Troponin I 0.923 ng/mL (< 0.028)
[2020-07-26] MEDS: Atorvastatin Calcium 40 MG TAB PO SCH (21:39)
[2020-07-27] MEDS: Meropenem 500 MG in Sodium Chloride 0.9% 100 ML IVPB SCH ×4 (04:08→21:40)
[2020-07-27 04:37] LABS: #Basophils 0.1 10x3/uL (0.0-0.2); #Monocytes 1.1 10x3/uL (0.0-1.1); #Neutrophils 9.9 10x3/uL (1.5-8.4); %Basophils 0.3 % (0.0-2.0); %Eosinophils 0.3 % (0.0-6.0); %Monocytes 7.5 % (0.0-10.0); %Neutrophils 67.4 % (40.0-75.0); Hemoglobin 11.6 g/dL (13.5-17.5); Mean Corpuscular HGB CONC 33.3 g/dL (32.0-36.0); Mean Platelet Volume 11.3 fl (7.4-10.4); Platelet Count 176 10x3/uL (150-450); RBC Distribution Width 14.7 % (11.5-14.5); White Blood Cell (WBC) Count 14.6 10x3/uL (3.5-10.5)
[2020-07-27 04:54] LABS: ALT (SGPT) 73 U/L (8-55); AST (SGOT) 41 U/L (5-34); Alkaline Phosphatase 84 U/L (40-110); Anion Gap 17 mmol/L (10-20); BUN (Urea Nitrogen) 34 mg/dL (8.4-25.7); Bilirubin, Total 0.5 mg/dL (0.2-1.2); Calc. Creatinine Clearance 83 mL/min (70-130); Calcium 8.3 mg/dL (7.8-10.44); Carbon Dioxide 23 mmol/L (22-29); Chloride 114 mmol/L (98-107); Globulin 2.4 g/dL (2.4-3.5); Glucose 130 mg/dL (70-105); Protein, Total 5.4 g/dL (6.0-8.3); Sodium 151 mmol/L (136-145)
[2020-07-27 05:02] LABS: Potassium 2.8 mmol/L (3.5-5.1)
[2020-07-27] MEDS ORDERED: Potassium Chloride 20 MEQ TAB PER TUBE SCH (06:00)
[2020-07-27] MEDS ORDERED: Potassium Chloride 40 MEQ in Premix Bag 1 BAG IVPB SCH (06:30)
[2020-07-27] MEDS: Carvedilol 25 MG TAB PO SCH ×2 (07:30→16:21)
[2020-07-27] MEDS: Potassium Chloride 20 MEQ in Premix Bag 1 BAG IVPB SCH ×2 (07:30→11:58)
[2020-07-27] MEDS: Pantoprazole 40 MG VIAL IVP SCH (07:31)
[2020-07-27] MEDS: Aspirin 81 mg Enteric Coated Tablet PO SCH (07:31)
[2020-07-27] MEDS: Lisinopril 20 MG TAB PO SCH (07:31)
[2020-07-27] MEDS: hydrALAZINE 20 MG/ML VIAL SLOW IVP PRN (14:02)
[2020-07-27] MEDS: Sodium Chloride 0.45% 1,000 ML IV SCH (14:03)
[2020-07-27] MEDS: Acetaminophen 325 MG TAB PO PRN (16:22)
[2020-07-27] MEDS: Atorvastatin Calcium 40 MG TAB PO SCH (21:40)
[2020-07-28] MEDS: Meropenem 500 MG in Sodium Chloride 0.9% 100 ML IVPB SCH ×4 (03:33→21:25)
[2020-07-28] MEDS: Sodium Chloride 0.45% 1,000 ML IV SCH ×2 (03:33→15:40)
[2020-07-28 04:04] LABS: #Basophils 0.1 10x3/uL (0.0-0.2); #Eosinphils 0.1 10x3/uL (0.0-0.5); #Monocytes 0.8 10x3/uL (0.0-1.1); #Neutrophils 8.5 10x3/uL (1.5-8.4); %Basophils 0.4 % (0.0-2.0); %Eosinophils 0.4 % (0.0-6.0); %Lymphocytes 22.2 % (18.0-47.0); %Monocytes 6.3 % (0.0-10.0); %Neutrophils 68.5 % (40.0-75.0); Hemoglobin 11.5 g/dL (13.5-17.5); Mean Corpuscular HGB CONC 32.8 g/dL (32.0-36.0); Mean Corpuscular Hemoglobin 28.8 pg (27.0-33.0); Mean Platelet Volume 11.2 fl (7.4-10.4); Platelet Count 170 10x3/uL (150-450); RBC Distribution Width 14.5 % (11.5-14.5); Red Blood Cell (RBC) Count 3.99 10x6/uL (4.32-5.72); White Blood Cell (WBC) Count 12.4 10x3/uL (3.5-10.5)
[2020-07-28 04:22] LABS: ALT (SGPT) 70 U/L (8-55); AST (SGOT) 51 U/L (5-34); Albumin 2.8 g/dL (3.5-5.0); Alkaline Phosphatase 77 U/L (40-110); Anion Gap 15 mmol/L (10-20); BUN (Urea Nitrogen) 29 mg/dL (8.4-25.7); Bilirubin, Total 0.6 mg/dL (0.2-1.2); Calc. Creatinine Clearance 91 mL/min (70-130); Calcium 7.9 mg/dL (7.8-10.44); Carbon Dioxide 22 mmol/L (22-29); Chloride 115 mmol/L (98-107); Globulin 2.5 g/dL (2.4-3.5); Glucose 130 mg/dL (70-105); Potassium 3.2 mmol/L (3.5-5.1); Protein, Total 5.3 g/dL (6.0-8.3); Sodium 149 mmol/L (136-145)
[2020-07-28] MEDS ORDERED: Potassium Chloride 20 MEQ TAB PER TUBE SCH (04:45)
[2020-07-28] MEDS: Potassium Chloride 20 MEQ in Premix Bag 1 BAG IVPB SCH ×2 (05:50→08:20)
[2020-07-28] MEDS: Pantoprazole 40 MG VIAL IVP SCH (08:19)
[2020-07-28] MEDS: Lisinopril 20 MG TAB PO SCH (08:19)
[2020-07-28] MEDS: Aspirin 81 mg Enteric Coated Tablet PO SCH (08:19)
[2020-07-28] MEDS: Carvedilol 25 MG TAB PO SCH ×2 (08:20→17:03)
[2020-07-28] MEDS ORDERED: Enoxaparin Sodium 40 MG/0.4 ML SYRINGE SC SCH (15:15)
[2020-07-28] MEDS ORDERED: Scopolamine 1.5 mg/72 hour Patch TD SCH (15:15)
[2020-07-28] MEDS: Atorvastatin Calcium 40 MG TAB PO SCH (21:25)
[2020-07-29] MEDS: Meropenem 500 MG in Sodium Chloride 0.9% 100 ML IVPB SCH ×4 (03:51→22:00)
[2020-07-29 04:44] LABS: #Monocytes 0.6 10x3/uL (0.0-1.1); #Neutrophils 7.2 10x3/uL (1.5-8.4); %Basophils 0.4 % (0.0-2.0); %Eosinophils 0.4 % (0.0-6.0); %Monocytes 5.5 % (0.0-10.0); %Neutrophils 70.5 % (40.0-75.0); Hemoglobin 10.9 g/dL (13.5-17.5); Mean Corpuscular HGB CONC 33.1 g/dL (32.0-36.0); Mean Corpuscular Hemoglobin 29.1 pg (27.0-33.0); Mean Corpuscular Volume 87.7 fl (81.2-95.1); Mean Platelet Volume 11.7 fl (7.4-10.4); Platelet Count 169 10x3/uL (150-450); RBC Distribution Width 14.1 % (11.5-14.5); Red Blood Cell (RBC) Count 3.75 10x6/uL (4.32-5.72); White Blood Cell (WBC) Count 10.2 10x3/uL (3.5-10.5)
[2020-07-29 04:56] LABS: ALT (SGPT) 55 U/L (8-55); AST (SGOT) 37 U/L (5-34); Albumin 2.7 g/dL (3.5-5.0); Alkaline Phosphatase 66 U/L (40-110); Anion Gap 14 mmol/L (10-20); BUN (Urea Nitrogen) 28 mg/dL (8.4-25.7); Bilirubin, Total 0.6 mg/dL (0.2-1.2); Calc. Creatinine Clearance 101 mL/min (70-130); Calcium 7.9 mg/dL (7.8-10.44); Carbon Dioxide 22 mmol/L (22-29); Chloride 115 mmol/L (98-107); Globulin 2.6 g/dL (2.4-3.5); Glucose 140 mg/dL (70-105); Potassium 3.5 mmol/L (3.5-5.1); Protein, Total 5.3 g/dL (6.0-8.3); Sodium 147 mmol/L (136-145)
[2020-07-29] MEDS: Sodium Chloride 0.45% 1,000 ML IV SCH ×3 (06:47→23:13)
[2020-07-29] MEDS: Lisinopril 20 MG TAB PO SCH (08:08)
[2020-07-29] MEDS: Pantoprazole 40 MG VIAL IVP SCH (08:08)
[2020-07-29] MEDS: Enoxaparin Sodium 40 MG/0.4 ML SYRINGE SC SCH (08:08)
[2020-07-29] MEDS: Carvedilol 25 MG TAB PO SCH ×2 (08:08→16:27)
[2020-07-29] MEDS: Aspirin 81 mg Enteric Coated Tablet PO SCH (08:08)
[2020-07-29] MEDS: Labetalol HCl 100 MG/20 ML VIAL SLOW IVP PRN (09:06)
[2020-07-29] MEDS: Acetaminophen 325 MG TAB PO PRN (09:20)
[2020-07-29] MEDS: HumaLOG 300 UNITS/3 ML VIAL SC PRN ×2 (09:37→13:10)
[2020-07-29] MEDS: hydrALAZINE 20 MG/ML VIAL SLOW IVP PRN (09:41)
[2020-07-29] MEDS: Atorvastatin Calcium 40 MG TAB PO SCH (21:30)
[2020-07-30 04:24] LABS: #Eosinphils 0.1 10x3/uL (0.0-0.5); #Monocytes 0.6 10x3/uL (0.0-1.1); #Neutrophils 7.2 10x3/uL (1.5-8.4); %Basophils 0.4 % (0.0-2.0); %Eosinophils 1.3 % (0.0-6.0); %Lymphocytes 18.5 % (18.0-47.0); %Monocytes 5.8 % (0.0-10.0); %Neutrophils 72.5 % (40.0-75.0); Hemoglobin 10.2 g/dL (13.5-17.5); Mean Corpuscular Hemoglobin 29.1 pg (27.0-33.0); Mean Platelet Volume 11.8 fl (7.4-10.4); Platelet Count 149 10x3/uL (150-450); RBC Distribution Width 13.9 % (11.5-14.5); Red Blood Cell (RBC) Count 3.51 10x6/uL (4.32-5.72); White Blood Cell (WBC) Count 9.9 10x3/uL (3.5-10.5)
[2020-07-30 04:41] LABS: ALT (SGPT) 41 U/L (8-55); AST (SGOT) 26 U/L (5-34); Albumin 2.5 g/dL (3.5-5.0); Alkaline Phosphatase 60 U/L (40-110); Anion Gap 14 mmol/L (10-20); BUN (Urea Nitrogen) 25 mg/dL (8.4-25.7); Bilirubin, Total 0.6 mg/dL (0.2-1.2); Calc. Creatinine Clearance 126 mL/min (70-130); Carbon Dioxide 20 mmol/L (22-29); Chloride 114 mmol/L (98-107); Globulin 2.5 g/dL (2.4-3.5); Glucose 141 mg/dL (70-105); Potassium 3.4 mmol/L (3.5-5.1); Sodium 145 mmol/L (136-145)
[2020-07-30] MEDS: Meropenem 500 MG in Sodium Chloride 0.9% 100 ML IVPB SCH ×4 (05:30→22:11)
[2020-07-30] MEDS ORDERED: Potassium Chloride 20 MEQ TAB PO SCH (08:00)
[2020-07-30] MEDS: Aspirin 81 mg Enteric Coated Tablet PO SCH (08:20)
[2020-07-30] MEDS: Carvedilol 25 MG TAB PO SCH ×2 (08:20→15:57)
[2020-07-30] MEDS: Pantoprazole 40 MG VIAL IVP SCH (08:20)
[2020-07-30] MEDS: Enoxaparin Sodium 40 MG/0.4 ML SYRINGE SC SCH (08:21)
[2020-07-30] MEDS: Lisinopril 20 MG TAB PO SCH (08:22)
[2020-07-30] MEDS: Sodium Chloride 0.45% 1,000 ML IV SCH (15:31)
[2020-07-30] MEDS: Atorvastatin Calcium 40 MG TAB PO SCH (22:11)
[2020-07-31] MEDS: Meropenem 500 MG in Sodium Chloride 0.9% 100 ML IVPB SCH ×4 (05:39→20:47)
[2020-07-31] MEDS: Enoxaparin Sodium 40 MG/0.4 ML SYRINGE SC SCH (08:15)
[2020-07-31] MEDS: Pantoprazole 40 MG VIAL IVP SCH (08:15)
[2020-07-31] MEDS: Carvedilol 25 MG TAB PO SCH ×2 (08:15→15:19)
[2020-07-31] MEDS: Aspirin 81 mg Enteric Coated Tablet PO SCH (08:15)
[2020-07-31] MEDS: Lisinopril 20 MG TAB PO SCH (08:15)
[2020-07-31] MEDS ORDERED: Hyoscyamine Sulfate SL 0.125 mg Tablet PO PRN (13:59)
[2020-07-31] MEDS: Sodium Chloride 0.45% 1,000 ML IV SCH ×2 (14:06→21:23)
[2020-07-31] MEDS ORDERED: Scopolamine 1.5 mg/72 hour Patch TD SCH (15:00)
[2020-07-31 19:34] LABS: Bilirubin Neg (Negative); Blood, Urine Negative (Negative); Clarity Clear (Clear); Glucose, Urine (Dipstick) Normal (Negative); Ketone, Urine 50 mg/dL (Negative); Leukocyte 25 (Negative); Nitrite Negative (Negative); Protein, Urine (Dipstick) 15 mg/dl (Neg-Trace); Specific Gravity, Urine 1.015 (1.002-1.036)
[2020-07-31 19:53] LABS: RBC/HPF 0-3 HPF (0-3)
[2020-07-31 19:54] LABS: WBC/HPF 0-3 HPF (0-3)
[2020-07-31 19:56] LABS: Squamous Epithelial None Seen HPF (0-3)
[2020-07-31 20:00] LABS: Bacteria/HPF Rare-Few HPF (None Seen)
[2020-07-31] MEDS: Atorvastatin Calcium 40 MG TAB PO SCH (20:47)
[2020-07-31 21:11] LABS: #Eosinphils 0.1 10x3/uL (0.0-0.5); #Monocytes 0.7 10x3/uL (0.0-1.1); #Neutrophils 6.6 10x3/uL (1.5-8.4); %Basophils 0.3 % (0.0-2.0); %Eosinophils 0.8 % (0.0-6.0); %Lymphocytes 16.1 % (18.0-47.0); %Monocytes 7.3 % (0.0-10.0); %Neutrophils 74.1 % (40.0-75.0); Hemoglobin 9.3 g/dL (13.5-17.5); Mean Corpuscular HGB CONC 33.2 g/dL (32.0-36.0); Mean Corpuscular Hemoglobin 28.5 pg (27.0-33.0); Mean Corpuscular Volume 85.9 fl (81.2-95.1); Mean Platelet Volume 12.1 fl (7.4-10.4); Platelet Count 181 10x3/uL (150-450); RBC Distribution Width 13.6 % (11.5-14.5); Red Blood Cell (RBC) Count 3.26 10x6/uL (4.32-5.72); White Blood Cell (WBC) Count 8.9 10x3/uL (3.5-10.5)
[2020-08-01] MEDS: Meropenem 500 MG in Sodium Chloride 0.9% 100 ML IVPB SCH ×4 (05:00→20:46)
[2020-08-01 06:15] LABS: ALT (SGPT) 23 U/L (8-55); AST (SGOT) 20 U/L (5-34); Albumin 2.2 g/dL (3.5-5.0); Alkaline Phosphatase 62 U/L (40-110); Anion Gap 12 mmol/L (10-20); BUN (Urea Nitrogen) 15 mg/dL (8.4-25.7); Bilirubin, Total 0.5 mg/dL (0.2-1.2); Calc. Creatinine Clearance 156 mL/min (70-130); Calcium 7.8 mg/dL (7.8-10.44); Carbon Dioxide 20 mmol/L (22-29); Chloride 110 mmol/L (98-107); Globulin 2.7 g/dL (2.4-3.5); Glucose 133 mg/dL (70-105); Lipase 18 U/L (8-78); Potassium 3.2 mmol/L (3.5-5.1); Protein, Total 4.9 g/dL (6.0-8.3); Sodium 139 mmol/L (136-145)
[2020-08-01 07:01] LABS: Magnesium 1.8 mg/dL (1.6-2.6); Phosphorus 2.2 mg/dL (2.3-4.7)
[2020-08-01 07:19] LABS: #Eosinphils 0.1 10x3/uL (0.0-0.5); #Monocytes 0.8 10x3/uL (0.0-1.1); #Neutrophils 7.2 10x3/uL (1.5-8.4); %Basophils 0.3 % (0.0-2.0); %Eosinophils 0.7 % (0.0-6.0); %Lymphocytes 14.2 % (18.0-47.0); %Monocytes 8.1 % (0.0-10.0); %Neutrophils 75.1 % (40.0-75.0); Hemoglobin 9.2 g/dL (13.5-17.5); Mean Corpuscular HGB CONC 33.9 g/dL (32.0-36.0); Mean Corpuscular Hemoglobin 29.1 pg (27.0-33.0); Mean Corpuscular Volume 85.8 fl (81.2-95.1); Mean Platelet Volume 12.1 fl (7.4-10.4); RBC Distribution Width 13.5 % (11.5-14.5); Red Blood Cell (RBC) Count 3.16 10x6/uL (4.32-5.72); White Blood Cell (WBC) Count 9.6 10x3/uL (3.5-10.5)
[2020-08-01 07:32] LABS: INR-International Normal Ratio 1.1; PTT 32.9 sec (22.0-33.0); Platelet Count 205 10x3/uL (150-450); Prothrombin Time 12.1 sec (9.5-12.1)
[2020-08-01] MEDS ORDERED: Potassium Chloride 20 MEQ TAB PO SCH (08:00)
[2020-08-01] MEDS: Enoxaparin Sodium 40 MG/0.4 ML SYRINGE SC SCH (08:30)
[2020-08-01] MEDS: Carvedilol 25 MG TAB PO SCH ×2 (08:30→16:07)
[2020-08-01] MEDS: Lisinopril 20 MG TAB PO SCH (08:30)
[2020-08-01] MEDS: Aspirin 81 mg Enteric Coated Tablet PO SCH (08:31)
[2020-08-01] MEDS: Pantoprazole 40 MG VIAL IVP SCH (08:31)
[2020-08-01 08:49] VITALS: BMI 28.4
[2020-08-01 09:39] LABS: #Eosinphils 0.1 10x3/uL (0.0-0.5); #Monocytes 0.9 10x3/uL (0.0-1.1); #Neutrophils 7.7 10x3/uL (1.5-8.4); %Basophils 0.2 % (0.0-2.0); %Eosinophils 0.6 % (0.0-6.0); %Lymphocytes 13.8 % (18.0-47.0); %Monocytes 8.4 % (0.0-10.0); %Neutrophils 75.6 % (40.0-75.0); Hemoglobin 9.4 g/dL (13.5-17.5); Mean Corpuscular HGB CONC 33.8 g/dL (32.0-36.0); Mean Corpuscular Hemoglobin 29.3 pg (27.0-33.0); Mean Corpuscular Volume 86.6 fl (81.2-95.1); Mean Platelet Volume 12.5 fl (7.4-10.4); Platelet Count 215 10x3/uL (150-450); RBC Distribution Width 13.3 % (11.5-14.5); Red Blood Cell (RBC) Count 3.21 10x6/uL (4.32-5.72); White Blood Cell (WBC) Count 10.2 10x3/uL (3.5-10.5)
[2020-08-01 09:54] LABS: INR-International Normal Ratio 1.1; PTT 34.5 sec (22.0-33.0); Prothrombin Time 12.3 sec (9.5-12.1)
[2020-08-01] MEDS: Sodium Chloride 0.45% 1,000 ML IV SCH (10:11)
[2020-08-01 11:10] LABS: Bilirubin Neg (Negative); Blood, Urine 150 (Negative); Clarity Clear (Clear); Glucose, Urine (Dipstick) Normal (Negative); Ketone, Urine 50 mg/dL (Negative); Leukocyte 25 (Negative); Nitrite Negative (Negative); Protein, Urine (Dipstick) 30 mg/dl (Neg-Trace)
[2020-08-01] MEDS ORDERED: Lorazepam 2 MG/ML VIAL ONE (11:20)
[2020-08-01] MEDS ORDERED: Lorazepam 2 MG/ML VIAL SLOW IVP PRN (11:21)
[2020-08-01 11:51] LABS: WBC/HPF 0-3 HPF (0-3)
[2020-08-01 11:52] LABS: Bacteria/HPF None Seen HPF (None Seen); Squamous Epithelial 0-3 HPF (0-3)
[2020-08-01 13:19] LABS: Actual Bicarbonate (HCO3a) 19.5 mEq/L (22-28); Base Excess (BEa) -2.9 mEq/L (-2.0 to +3.0); CO2 Tension 26.6 mmHg (35.0-45.0); Calcium, Ionized (arterial) 1.14 mmol/L (1.12-1.30); Carboxyhemoglobin (COHb) 0.3 gm% (0.0-3.0); Hemoglobin (Hb) 10.1 g/dL (14.0-18.0); O2 Tension (PaO2), arterial 287.8 mmHg (80.0-100.0); Potassium - ABG Lab 3.7 mmol/L (3.70-5.30); pH, Arterial 7.48 (7.35-7.45)
[2020-08-01 13:19] LABS: Actual Bicarbonate (HCO3a) 17.7 mEq/L (22-28); Base Excess (BEa) -4.5 mEq/L (-2.0 to +3.0); CO2 Tension 24.2 mmHg (35.0-45.0); Calcium, Ionized (arterial) 1.14 mmol/L (1.12-1.30); Carboxyhemoglobin (COHb) 0.3 gm% (0.0-3.0); Hemoglobin (Hb) 9.8 g/dL (14.0-18.0); O2 Tension (PaO2), arterial 157.6 mmHg (80.0-100.0); Potassium - ABG Lab 3.3 mmol/L (3.70-5.30); Puncture Site LRA; pH, Arterial 7.48 (7.35-7.45)
[2020-08-01 13:23] LABS: ALT (SGPT) 21 U/L (8-55); AST (SGOT) 24 U/L (5-34); Albumin 2.3 g/dL (3.5-5.0); Alkaline Phosphatase 66 U/L (40-110); Anion Gap 13 mmol/L (10-20); BUN (Urea Nitrogen) 13 mg/dL (8.4-25.7); Bilirubin, Total 0.5 mg/dL (0.2-1.2); Calc. Creatinine Clearance 144 mL/min (70-130); Calcium 7.9 mg/dL (7.8-10.44); Carbon Dioxide 19 mmol/L (22-29); Chloride 108 mmol/L (98-107); Globulin 2.9 g/dL (2.4-3.5); Glucose 124 mg/dL (70-105); Potassium 3.3 mmol/L (3.5-5.1); Protein, Total 5.2 g/dL (6.0-8.3); Sodium 137 mmol/L (136-145)
[2020-08-01 15:09] LABS: Actual Bicarbonate (HCO3a) 19.8 mEq/L (22-28); Base Excess (BEa) -3.7 mEq/L (-2.0 to +3.0); CO2 Tension 30.4 mmHg (35.0-45.0); Calcium, Ionized (arterial) 1.16 mmol/L (1.12-1.30); Carboxyhemoglobin (COHb) 0.3 gm% (0.0-3.0); Hemoglobin (Hb) 10.1 g/dL (14.0-18.0); O2 Tension (PaO2), arterial 151.8 mmHg (80.0-100.0); Potassium - ABG Lab 3.2 mmol/L (3.70-5.30); pH, Arterial 7.43 (7.35-7.45)
[2020-08-01 15:14] LABS: #Eosinphils 0.1 10x3/uL (0.0-0.5); #Neutrophils 9.1 10x3/uL (1.5-8.4); %Basophils 0.3 % (0.0-2.0); %Eosinophils 0.6 % (0.0-6.0); %Monocytes 8.5 % (0.0-10.0); %Neutrophils 76.2 % (40.0-75.0); Hemoglobin 9.3 g/dL (13.5-17.5); Mean Corpuscular HGB CONC 33.2 g/dL (32.0-36.0); Mean Corpuscular Hemoglobin 28.6 pg (27.0-33.0); Mean Corpuscular Volume 86.2 fl (81.2-95.1); Mean Platelet Volume 12.3 fl (7.4-10.4); Platelet Count 221 10x3/uL (150-450); RBC Distribution Width 13.4 % (11.5-14.5); Red Blood Cell (RBC) Count 3.25 10x6/uL (4.32-5.72); White Blood Cell (WBC) Count 11.9 10x3/uL (3.5-10.5)
[2020-08-01 15:26] LABS: Phosphorus 2.7 mg/dL (2.3-4.7)
[2020-08-01 15:28] LABS: ALT (SGPT) 22 U/L (8-55); AST (SGOT) 23 U/L (5-34); Albumin 2.3 g/dL (3.5-5.0); Alkaline Phosphatase 72 U/L (40-110); Anion Gap 14 mmol/L (10-20); BUN (Urea Nitrogen) 12 mg/dL (8.4-25.7); Bilirubin, Total 0.4 mg/dL (0.2-1.2); Calc. Creatinine Clearance 154 mL/min (70-130); Calcium 7.3 mg/dL (7.8-10.44); Carbon Dioxide 18 mmol/L (22-29); Chloride 109 mmol/L (98-107); Globulin 2.3 g/dL (2.4-3.5); Glucose 128 mg/dL (70-105); Magnesium 1.7 mg/dL (1.6-2.6); Potassium 3.5 mmol/L (3.5-5.1); Protein, Total 4.6 g/dL (6.0-8.3); Sodium 137 mmol/L (136-145)
[2020-08-01 15:50] LABS: INR-International Normal Ratio 1.1; Prothrombin Time 12.1 sec (9.5-12.1)
[2020-08-01 18:11] LABS: Actual Bicarbonate (HCO3a) 21.6 mEq/L (22-28); Base Excess (BEa) -2.4 mEq/L (-2.0 to +3.0); CO2 Tension 34.1 mmHg (35.0-45.0); Calcium, Ionized (arterial) 1.16 mmol/L (1.12-1.30); Carboxyhemoglobin (COHb) 0.3 gm% (0.0-3.0); Hemoglobin (Hb) 9.4 g/dL (14.0-18.0); O2 Tension (PaO2), arterial 437.8 mmHg (80.0-100.0); Potassium - ABG Lab 3.2 mmol/L (3.70-5.30); pH, Arterial 7.42 (7.35-7.45)
[2020-08-01 18:12] LABS: ALV-art Gradient 232.575 mmHg (0-20)
[2020-08-01] MEDS: Atorvastatin Calcium 40 MG TAB PO SCH (20:46)
[2020-08-01] MEDS ORDERED: Piperacillin/Tazobactam 3.375 GM in Sodium Chloride 0.9% 100 ML IVPB SCH (21:00)
[2020-08-01 21:27] LABS: #Eosinphils 0.1 10x3/uL (0.0-0.5); #Monocytes 0.9 10x3/uL (0.0-1.1); #Neutrophils 6.6 10x3/uL (1.5-8.4); %Basophils 0.3 % (0.0-2.0); %Eosinophils 0.8 % (0.0-6.0); %Lymphocytes 15.5 % (18.0-47.0); %Monocytes 9.4 % (0.0-10.0); %Neutrophils 72.7 % (40.0-75.0); Hemoglobin 8.5 g/dL (13.5-17.5); Mean Corpuscular HGB CONC 32.8 g/dL (32.0-36.0); Mean Corpuscular Hemoglobin 28.8 pg (27.0-33.0); Mean Corpuscular Volume 87.8 fl (81.2-95.1); Platelet Count 217 10x3/uL (150-450); RBC Distribution Width 13.4 % (11.5-14.5); Red Blood Cell (RBC) Count 2.95 10x6/uL (4.32-5.72)
[2020-08-01 21:34] LABS: INR-International Normal Ratio 1.1; PTT 33.9 sec (22.0-33.0); Prothrombin Time 12.4 sec (9.5-12.1)
[2020-08-01 21:35] LABS: ALT (SGPT) 20 U/L (8-55); AST (SGOT) 21 U/L (5-34); Albumin 2.1 g/dL (3.5-5.0); Alkaline Phosphatase 63 U/L (40-110); Anion Gap 12 mmol/L (10-20); BUN (Urea Nitrogen) 11 mg/dL (8.4-25.7); Bilirubin, Total 0.4 mg/dL (0.2-1.2); Calc. Creatinine Clearance 160 mL/min (70-130); Calcium 7.7 mg/dL (7.8-10.44); Carbon Dioxide 19 mmol/L (22-29); Chloride 108 mmol/L (98-107); Globulin 2.9 g/dL (2.4-3.5); Glucose 128 mg/dL (70-105); Magnesium 1.8 mg/dL (1.6-2.6); Phosphorus 2.9 mg/dL (2.3-4.7); Potassium 3.1 mmol/L (3.5-5.1); Sodium 136 mmol/L (136-145)
[2020-08-02 00:29] LABS: Actual Bicarbonate (HCO3a) 19.8 mEq/L (22-28); Base Excess (BEa) -4.1 mEq/L (-2.0 to +3.0); CO2 Tension 31.4 mmHg (35.0-45.0); Calcium, Ionized (arterial) 1.17 mmol/L (1.12-1.30); Carboxyhemoglobin (COHb) 0.3 gm% (0.0-3.0); Hemoglobin (Hb) 8.7 g/dL (14.0-18.0); O2 Tension (PaO2), arterial 455.9 mmHg (80.0-100.0); Potassium - ABG Lab 3.2 mmol/L (3.70-5.30); pH, Arterial 7.42 (7.35-7.45)
[2020-08-02] MEDS: Piperacillin/Tazobactam 3.375 GM in Sodium Chloride 0.9% 100 ML IVPB SCH ×2 (03:56→10:00)
[2020-08-02] MEDS: Meropenem 500 MG in Sodium Chloride 0.9% 100 ML IVPB SCH ×2 (04:13→10:00)
[2020-08-02 04:23] LABS: #Eosinphils 0.1 10x3/uL (0.0-0.5); #Neutrophils 6.8 10x3/uL (1.5-8.4); %Basophils 0.2 % (0.0-2.0); %Eosinophils 0.9 % (0.0-6.0); %Lymphocytes 14.2 % (18.0-47.0); %Monocytes 10.3 % (0.0-10.0); %Neutrophils 72.9 % (40.0-75.0); Hemoglobin 8.2 g/dL (13.5-17.5); Mean Corpuscular HGB CONC 33.2 g/dL (32.0-36.0); Mean Corpuscular Hemoglobin 29.2 pg (27.0-33.0); Mean Corpuscular Volume 87.9 fl (81.2-95.1); Mean Platelet Volume 11.9 fl (7.4-10.4); Platelet Count 225 10x3/uL (150-450); RBC Distribution Width 13.4 % (11.5-14.5); Red Blood Cell (RBC) Count 2.81 10x6/uL (4.32-5.72); White Blood Cell (WBC) Count 9.3 10x3/uL (3.5-10.5)
[2020-08-02 05:59] LABS: Actual Bicarbonate (HCO3a) 21.8 mEq/L (22-28); Base Excess (BEa) -1.8 mEq/L (-2.0 to +3.0); CO2 Tension 31.8 mmHg (35.0-45.0); Calcium, Ionized (arterial) 1.15 mmol/L (1.12-1.30); Carboxyhemoglobin (COHb) 0.1 gm% (0.0-3.0); Hemoglobin (Hb) 7.9 g/dL (14.0-18.0); O2 Tension (PaO2), arterial 407.1 mmHg (80.0-100.0); Potassium - ABG Lab 3.2 mmol/L (3.70-5.30); pH, Arterial 7.45 (7.35-7.45)
[2020-08-02] MEDS: Sodium Chloride 0.45% 1,000 ML IV SCH (06:10)
[2020-08-02 06:42] LABS: Bilirubin Neg (Negative); Blood, Urine 10 (Negative); Clarity Clear (Clear); Glucose, Urine (Dipstick) 50 mg/dL (Negative); Ketone, Urine 15 mg/dL (Negative); Leukocyte Negative (Negative); Nitrite Negative (Negative); Protein, Urine (Dipstick) 15 mg/dl (Neg-Trace); Specific Gravity, Urine 1.015 (1.002-1.036)
[2020-08-02 06:54] LABS: ALT (SGPT) 21 U/L (8-55); AST (SGOT) 22 U/L (5-34); Albumin 2.1 g/dL (3.5-5.0); Alkaline Phosphatase 65 U/L (40-110); Anion Gap 12 mmol/L (10-20); BUN (Urea Nitrogen) 10 mg/dL (8.4-25.7); Bilirubin, Total 0.3 mg/dL (0.2-1.2); Calc. Creatinine Clearance 163 mL/min (70-130); Calcium 7.8 mg/dL (7.8-10.44); Carbon Dioxide 21 mmol/L (22-29); Chloride 109 mmol/L (98-107); Globulin 2.8 g/dL (2.4-3.5); Glucose 123 mg/dL (70-105); Potassium 3.2 mmol/L (3.5-5.1); Protein, Total 4.9 g/dL (6.0-8.3); Sodium 139 mmol/L (136-145)
[2020-08-02 07:01] LABS: Bacteria/HPF None Seen HPF (None Seen); RBC/HPF 0-3 HPF (0-3); Squamous Epithelial 0-3 HPF (0-3); WBC/HPF 0-3 HPF (0-3)
[2020-08-02 08:43] VITALS: TEMP 97.6
[2020-08-02] MEDS: Carvedilol 25 MG TAB PO SCH (10:00)
[2020-08-02] MEDS: Aspirin 81 mg Enteric Coated Tablet PO SCH (10:00)
[2020-08-02] MEDS: Pantoprazole 40 MG VIAL IVP SCH (10:00)
[2020-08-02] MEDS: Enoxaparin Sodium 40 MG/0.4 ML SYRINGE SC SCH (10:00)
[2020-08-02] MEDS: Lisinopril 20 MG TAB PO SCH (10:00)
[2020-08-02 11:08] LABS: #Eosinphils 0.1 10x3/uL (0.0-0.5); #Monocytes 1.1 10x3/uL (0.0-1.1); #Neutrophils 7.5 10x3/uL (1.5-8.4); %Basophils 0.3 % (0.0-2.0); %Eosinophils 0.7 % (0.0-6.0); %Lymphocytes 11.5 % (18.0-47.0); %Monocytes 10.7 % (0.0-10.0); %Neutrophils 75.2 % (40.0-75.0); Hemoglobin 8.1 g/dL (13.5-17.5); Mean Corpuscular HGB CONC 32.8 g/dL (32.0-36.0); Mean Corpuscular Hemoglobin 28.7 pg (27.0-33.0); Mean Corpuscular Volume 87.6 fl (81.2-95.1); Mean Platelet Volume 11.8 fl (7.4-10.4); Platelet Count 255 10x3/uL (150-450); RBC Distribution Width 13.4 % (11.5-14.5); Red Blood Cell (RBC) Count 2.82 10x6/uL (4.32-5.72); White Blood Cell (WBC) Count 9.9 10x3/uL (3.5-10.5)
[2020-08-02 11:10] LABS: Actual Bicarbonate (HCO3a) 21.2 mEq/L (22-28); Base Excess (BEa) -2.5 mEq/L (-2.0 to +3.0); CO2 Tension 33.2 mmHg (35.0-45.0); Calcium, Ionized (arterial) 1.14 mmol/L (1.12-1.30); Carboxyhemoglobin (COHb) 0.3 gm% (0.0-3.0); Hemoglobin (Hb) 11.6 g/dL (14.0-18.0); O2 Tension (PaO2), arterial 433.4 mmHg (80.0-100.0); Potassium - ABG Lab 3.4 mmol/L (3.70-5.30); pH, Arterial 7.42 (7.35-7.45)
[2020-08-02 11:23] LABS: ALT (SGPT) 22 U/L (8-55); AST (SGOT) 21 U/L (5-34); Albumin 2.1 g/dL (3.5-5.0); Alkaline Phosphatase 70 U/L (40-110); Anion Gap 13 mmol/L (10-20); BUN (Urea Nitrogen) 9 mg/dL (8.4-25.7); Bilirubin, Total 0.4 mg/dL (0.2-1.2); Calc. Creatinine Clearance 165 mL/min (70-130); Calcium 7.3 mg/dL (7.8-10.44); Carbon Dioxide 20 mmol/L (22-29); Chloride 110 mmol/L (98-107); Globulin 2.1 g/dL (2.4-3.5); Glucose 125 mg/dL (70-105); Magnesium 1.8 mg/dL (1.6-2.6); Phosphorus 2.8 mg/dL (2.3-4.7); Potassium 3.5 mmol/L (3.5-5.1); Protein, Total 4.2 g/dL (6.0-8.3); Sodium 139 mmol/L (136-145)
[2020-08-02 11:29] LABS: INR-International Normal Ratio 1.1; PTT 33.3 sec (22.0-33.0); Prothrombin Time 12.2 sec (9.5-12.1)
[2020-08-02] MEDS ORDERED: Lorazepam 2 MG/ML VIAL SLOW IVP PRN (11:47)
[2020-08-02] MEDS ORDERED: Heparin 10,000 UNITS/ 10 ML VIAL SLOW IVP SCH ×2 (12:00→12:45)
[2020-08-02 12:22] LABS: Bilirubin Neg (Negative); Blood, Urine Negative (Negative); Clarity Clear (Clear); Glucose, Urine (Dipstick) Normal (Negative); Ketone, Urine 15 mg/dL (Negative); Leukocyte Negative (Negative); Nitrite Negative (Negative); Protein, Urine (Dipstick) 15 mg/dl (Neg-Trace); Specific Gravity, Urine 1.015 (1.002-1.036); Urobilinogen Normal mg/dL (Less than 2)
[2020-08-02 12:46] LABS: RBC/HPF 0-3 HPF (0-3); Squamous Epithelial None Seen HPF (0-3); WBC/HPF 0-3 HPF (0-3)
[2020-08-02 12:47] LABS: Bacteria/HPF Rare-Few HPF (None Seen)
[2020-08-02] MEDS: Morphine 2 MG/ML VIAL IV PRN ×5 (14:08→14:29)
[2020-08-02] MEDS: Lorazepam 2 MG/ML VIAL SLOW IVP PRN ×5 (14:12→14:30)
[2020-08-02] MEDS ORDERED: Morphine 2 MG/ML VIAL ONE (14:31)
[2020-08-02] MEDS ORDERED: Lorazepam 2 MG/ML VIAL ONE (14:32)
[2020-08-02 15:35] VITALS: BP 129/72
== END 2020-08-02 14:37 | disposition expired | DRG 870 ==
LOC: CSHICU 17:08
PROVIDERS: ADMIT Family Medicine; ATTEND Hospitalist
PROC: 3E033XZ Introduction of Vasopressor into Peripheral Vein, Percutaneous Approach (ICD-10-PCS; principal; 2020-07-19)
PROC: 0BH17EZ Insertion of Endotracheal Airway into Trachea, Via Natural or Artificial Opening (ICD-10-PCS; 2020-07-19)
PROC: 5A1945Z Respiratory Ventilation, 24-96 Consecutive Hours (ICD-10-PCS; 2020-07-19)
PROC: 5A1955Z Respiratory Ventilation, Greater than 96 Consecutive Hours (ICD-10-PCS; 2020-07-25)
PROC: 5A12012 Performance of Cardiac Output, Single, Manual (ICD-10-PCS; 2020-07-25)
PROC: 02HV33Z Insertion of Infusion Device into Superior Vena Cava, Percutaneous Approach (ICD-10-PCS; 2020-07-25)
PROC: B548ZZA Ultrasonography of Superior Vena Cava, Guidance (ICD-10-PCS; 2020-07-25)
PROC: 0BH17EZ Insertion of Endotracheal Airway into Trachea, Via Natural or Artificial Opening (ICD-10-PCS; 2020-07-25)
DX: A41.9 Sepsis, unspecified organism (principal); K85.90 Acute pancreatitis without necrosis or infection, unspecified; J96.01 Acute respiratory failure with hypoxia; J69.0 Pneumonitis due to inhalation of food and vomit; R65.21 Severe sepsis with septic shock; J96.02 Acute respiratory failure with hypercapnia; F19.20 Other psychoactive substance dependence, uncomplicated; E87.2 Acidosis; N17.9 Acute kidney failure, unspecified; G93.1 Anoxic brain damage, not elsewhere classified; E87.0 Hyperosmolality and hypernatremia; I69.354 Hemiplegia and hemiparesis following cerebral infarction affecting left non-dominant side; I69.362 Other paralytic syndrome following cerebral infarction affecting left dominant side; Z66 Do not resuscitate; Z51.5 Encounter for palliative care; I16.0 Hypertensive urgency; E78.5 Hyperlipidemia, unspecified; I48.91 Unspecified atrial fibrillation; E87.6 Hypokalemia; I46.9 Cardiac arrest, cause unspecified; R77.8 Other specified abnormalities of plasma proteins; F17.210 Nicotine dependence, cigarettes, uncomplicated; I25.2 Old myocardial infarction; Z88.1 Allergy status to other antibiotic agents; Z91.018 Allergy to other foods; Z79.82 Long term (current) use of aspirin; Z79.4 Long term (current) use of insulin; Z79.899 Other long term (current) drug therapy; E11.9 Type 2 diabetes mellitus without complications
CPT/HCPCS: 36415; 36416; 36430; 36600; 70450; 71045; 74176; 80048; 80053; 80202; 80306; 81001; 81003; 81015; 82150; 82533; 82805; 82947; 83036; 83690; 83735; 84100; 84439; 84443; 84484; 85025; 85610; 85730; 86850; 86900; 86901; 87040; 87070; 87086; 87205; 89220; 93005; 93010; 93306; 93975; 94002; 94003; 94667; 94668; 94760; 95816; C9113; J0360; J0461; J1644; J1650; J1720; J1815; J1940; J1956; J2060; J2185; J2250; J2270; J2543; J2704; J3010; J3370; J3480; J3486; J3490; J7050; J7070; P9016; P9047; S0028